=== PATIENT | male | born 1995 | race Two or more races ===

== ENCOUNTER 2017-09-29 09:57 | Emergency (ER) | payer MEDICAID ==
--- NOTE | 2017-09-29 11:21 | ED Physician Documentation ---
PD HPI WOUND RECHECK - Stated complaint Stated Complaint: RT HAND LAC/LT HAND LAC - Chief complaint Chief Complaint: Wound - Histroy obtained from History obtained from: Patient - History of Present Illness Location: Right Upper Extremity (mcp ring finger lac sutured last week and it opened (sutures pulled through) and is open again. No signs of infection. He has been using hands gently, per patient.), Left Uppper Extremity (finger lac sutures last week and is healing without infection) Timing - onset: How many days ago (several) Associated symptoms: No: Fever, Redness, Drainage Recently seen: Emergency Dept (had sutures placed less than a week ago and wounds were doing okay. He was not using any ointment. Using hands entertainment musician than usual.) Review of Systems Constitutional: denies: Fever Skin: denies: Rash Neurologic: denies: Focal weakness, Numbness PD PAST MEDICAL HISTORY - Past Medical History Past Medical History: No - Past Surgical History Past Surgical History: No - Present Medications Home Medications: Ambulatory Orders Medication Instructions Recorded Confirmed Mupirocin 1 applic TP TID #15 oint...g. 09/29/17 - Allergies Allergies/Adverse Reactions: Allergies Allergy/AdvReac Type Severity Reaction Status Date / Time No Known Drug Allergies Allergy Verified 09/29/17 10:13 - Social History Does the pt smoke?: Yes Smoking Status: Current every day smoker Does the pt drink ETOH?: No Does the pt have substance abuse?: No - Immunizations Immunizations are current?: Yes - POLST Patient has POLST: No PD ED PE NORMAL - Vitals Vital signs reviewed: Yes - General General: Alert and oriented X 3, No acute distress, Well developed/nourished - Derm Derm: Normal color, Warm and dry - Extremities Extremities: Other (left finger with sutures intact, and some dry scab at edges. No signs of infection. Right ring MCP dorsally with wound that has dehisced to the subcut tissue. No deep structures exposed. No signs of infection. Edges healing some suggesting the sutured skin was not tight proximity.) Results - Vitals Vitals: Oxygen O2 Source Room air PD MEDICAL DECISION MAKING - ED course Complexity details: considered differential (sutures in left finger are still intact and are dry. Suggested he use some ointment on them. The lrft MCP lac is open without signs of infection. Just looks like the sutures were close to edge and pulled through with use. Discussed healing secondarily or consider re- suturing and he opted to just let it heal in. ), d/w patient - Sepsis Event Vital Signs: Oxygen O2 Source Room air Departure - Departure Disposition: 01 Home, Self Care Clinical Impression: Wound dehiscence, Suture check Condition: Stable Record reviewed to determine appropriate education?: Yes Prescriptions: Mupirocin 1 applic TP TID #15 oint...g. Comments: I would leave the left thumbs sutures in for another week. Apply some mupirocin ointment twice daily lately to it is not as dry and hard. The right knuckle wound should also have some ointment on it lightly once or twice a day and then just taper closed and allowed to heal in the rest of the way. Recheck if signs of infection. This will still take another week or 2 to heal up. Discharge Date/Time: 09/29/17 11:46
[2017-09-29] MEDS ORDERED: MUPIROCIN 2% OINT 1 GM TOP STA (11:31)
[2017-09-29 11:47] VITALS: BP 134/78
== END 2017-09-29 11:46 | disposition home or self-care (01) ==
LOC: ED 09:57
DX: T81.33XA Disruption of traumatic injury wound repair, initial encounter (principal)
CPT/HCPCS: 99283; A9270

== ENCOUNTER 2018-09-05 08:44 | Outpatient (CLI) | payer OTHER | END 2018-09-05 08:45 | disposition home or self-care (01) | LOC: LAB 08:44 | PROVIDERS: ATTEND Pathology Blood Banking & Transfusion Medicine | DX: Z53.9 Procedure and treatment not carried out, unspecified reason (principal) ==